=== PATIENT | male | born 1995 | race Caucasian/White ===

== ENCOUNTER 2021-09-09 13:54 | Emergency (ER) | payer MEDICAID ==
[~2021-09-09] VITALS: Ht 180.3 cm; Wt 109.1 kg
[2021-09-09 14:50] VITALS: BP 168/107
[2021-09-09] MEDS ORDERED: ondansetron 4mg rapidly disintigrating tab PO ONE (17:10)
[2021-09-09] MEDS ORDERED: oxyCODONE IR 5mg (immed. release) tablet PO ONE (17:10)
[2021-09-09] MEDS ORDERED: OXYC-481 PO (18:19)
== END 2021-09-09 18:36 | disposition home or self-care (01) ==
LOC: ER 13:55
DX: S62.314A Displaced fracture of base of fourth metacarpal bone, right hand, initial encounter for closed fracture (principal); S62.316A Displaced fracture of base of fifth metacarpal bone, right hand, initial encounter for closed fracture; F17.200 Nicotine dependence, unspecified, uncomplicated; X58.XXXA Exposure to other specified factors, initial encounter; Y93.89 Activity, other specified; Y92.89 Other specified places as the place of occurrence of the external cause; Y99.8 Other external cause status
CPT/HCPCS: 29125; 73120; 73130; 99284; A6446; A6449